=== PATIENT | male | born 1985 | race Caucasian/White ===

== ENCOUNTER 2023-05-17 14:37 | Emergency (ER) | payer BC, SELFPAY ==
[2023-05-17] MEDS ORDERED: Lidocaine 1% (PF) 30 ML VIAL ONE (15:23)
== END 2023-05-17 16:27 | disposition home or self-care (01) ==
LOC: ERS 14:37
DX: L72.3 Sebaceous cyst (principal)
CPT/HCPCS: 10060; J2001